=== PATIENT | female | born 1940 | race Caucasian/White ===

== ENCOUNTER 2020-10-23 10:22 | Inpatient (IN) | payer MEDICARE ==
[~2020-10-23] VITALS: Ht 160 cm; Wt 77.0 kg
[2020-10-23 11:19] LABS: HEMOGLOBIN 14.4 gm/dl (12.3-15.3); RED BLOOD COUNT 4.74 M/UL (4.00-5.10); WHITE BLOOD COUNT 7.3 K/UL (4.5-11.0)
[2020-10-23 12:01] LABS: BUN/CREATININE RATIO 21 (0-10)
[2020-10-23] MEDS ORDERED: ONDANSETRON HCL4 MG PO (15:47)
[2020-10-23] MEDS ORDERED: LISINOPRIL20 MG PO (15:49)
[2020-10-23] MEDS ORDERED: CETIRIZINE HCL10 MG PO (15:52)
[2020-10-23] MEDS ORDERED: EUTHYROX25 MCG PO (15:52)
[2020-10-23] MEDS ORDERED: LOPRESSOR 50 MG50 MG PO (15:53)
[2020-10-23] MEDS ORDERED: HYDROCHLOROTH12.5 M1 PO (15:55)
[2020-10-23] MEDS ORDERED: VITAMIN B-125000 MC2 PO (16:05)
[2020-10-23] MEDS ORDERED: ASPIRIN EC81 MG PO (16:05)
[2020-10-24 05:22] LABS: RED BLOOD COUNT 4.6 M/UL (4.00-5.10); WHITE BLOOD COUNT 2.7 K/UL (4.5-11.0)
[2020-10-24] MEDS ORDERED: AZITHROMYCIN500 MG PO (10:18)
== END 2020-10-24 17:45 | disposition home or self-care (01) | DRG 177 ==
LOC: ER1 10:22 → CDU 14:35 → MED SURG 4 10-24 13:52
PROVIDERS: Emergency Medicine; Physician Assistant Medical; ADMIT Internal Medicine
PROC: B24BZZZ Ultrasonography of Heart with Aorta (ICD-10-PCS; principal; 2020-10-24)
DX: U07.1 COVID-19 (principal); J12.82 Pneumonia due to coronavirus disease 2019; G93.41 Metabolic encephalopathy; E87.1 Hypo-osmolality and hyponatremia; N39.0 Urinary tract infection, site not specified; I95.2 Hypotension due to drugs; T50.2X5A Adverse effect of carbonic-anhydrase inhibitors, benzothiadiazides and other diuretics, initial encounter; E03.9 Hypothyroidism, unspecified; I12.9 Hypertensive chronic kidney disease with stage 1 through stage 4 chronic kidney disease, or unspecified chronic kidney disease; E87.6 Hypokalemia; S70.01XA Contusion of right hip, initial encounter; N18.9 Chronic kidney disease, unspecified; Z79.82 Long term (current) use of aspirin; Z79.890 Hormone replacement therapy; Z79.899 Other long term (current) drug therapy; Z80.0 Family history of malignant neoplasm of digestive organs; Z90.710 Acquired absence of both cervix and uterus
CPT/HCPCS: ECHO; 0240U; 36415; 70450; 71045; 73502; 73552; 73590; 80048; 80053; 81001; 82436; 82550; 82553; 83605; 83735; 83874; 83880; 83935; 84133; 84300; 84484; 85025; 85027; 85379; 86140; 87040; 87086; 93005; 93306; 96365; 96375; 99285; J0456; J0696; J1100; J1650; J3370; J7030; J7050